=== PATIENT | male | born 1995 | race Caucasian/White ===

== ENCOUNTER 2020-05-26 19:57 | Emergency (ER) | payer BC ==
[2020-05-26] MEDS ORDERED: Lidocaine 1% 10 ML MDV INJECT ONE (21:06)
--- NOTE | 2020-05-26 21:51 | EDM.PDOC ---
ED HPI GENERAL MEDICAL PROBLEM - General Chief Complaint: Laceration Stated Complaint: FINGER LAC Time Seen by Provider: 05/26/20 20:15 Source of Information: Reports: Patient, RN Notes Reviewed History Limitations: Reports: No Limitations - History of Present Illness INITIAL COMMENTS - FREE TEXT/NARRATIVE: Patient is a 24-year-old male presenting to the emergency department with complaints of a laceration to the lateral aspect of his right hand. States he was washing dishes and there was a piece of broken glass in there that caused a laceration. He has full function of the hand. Last tetanus vaccination was a couple years ago. - Related Data Allergies Allergy/AdvReac Type Severity Reaction Status Date / Time amoxicillin Allergy Seizure Verified 05/26/20 20:20 Past Medical History Cardiovascular History: Reports: Heart Murmur, Other (See Below) Other Cardiovascular History: abnormal aortic valve; sees shop steward in [place] Social & Family History - Family History Family Medical History: Noncontributory - Tobacco Use Years of Tobacco use: 4 Packs/Tins Daily: 0.2 ED ROS GENERAL - Review of Systems Review Of Systems: Comprehensive ROS is negative, except as noted in HPI. ED EXAM, SKIN/RASH Exam: See Below General Appearance: Alert, WD/WN, No Apparent Distress Respiratory/Chest: No Respiratory Distress, Lungs Clear, Normal Breath Sounds, No Accessory Muscle Use, Chest Non-Tender Cardiovascular: Normal Peripheral Pulses, Regular Rate, Rhythm, No Edema, No Gallop, No JVD, No Murmur, No Rub GI/Abdominal: Normal Bowel Sounds, Soft, Non-Tender, No Organomegaly, No Distention, No Abnormal Bruit, No Mass Neurological: Alert, Oriented, CN II-XII Intact, Normal Cognition, Normal Gait, Normal Reflexes, No Motor/Sensory Deficits Psychiatric: Normal Affect, Normal Mood Skin: Other (Centimeter laceration to the lateral aspect of the right hand at the level of the MCP joint on the fifth finger. Full strength of flexion and extension. Small amount of active bleeding.) ED SKIN PROCEDURES - Laceration/Wound Repair Right Lateral Hand Appearance: Subcutaneous Distal NVT: Neuro & Vascular Intact, No Tendon Injury Anesthetic Type: Local Local Anesthesia - Lidocaine (Xylocaine): 1% Plain Local Anesthetic Volume: 1cc Skin Prep: Chlorhexidine (Hibiciens), Providone-Iodine (Betadine), Saline Exploration/Debridement/Repair: Wound Explored, No Foreign Material Found Closed with: Sutures Lac/Wound length In cm: 2 Suture Size: 4-0 # of Sutures: 4 Suture Type: Nylon Sterile Dressing Applied: Nurse Tetanus Status Addressed: Yes Complications: No Course - Vital Signs Last Recorded V/S: Last Vital Signs Temp 97.7 F 05/26/20 20:13 Pulse 76 05/26/20 20:13 Resp 16 05/26/20 20:13 BP 152/69 H 05/26/20 20:13 Pulse Ox 100 05/26/20 20:13 - Orders/Labs/Meds Meds: Medications Discontinued Medications Generic Name Dose Route Start Last Admin Trade Name Thu PRN Reason Stop Dose Admin Lidocaine HCl 10 ml 05/26/20 21:06 05/26/20 21:37 Xylocaine 1% INJECT 05/26/20 21:07 10 ml ONETIME ONE Administration Departure - Departure Time of Disposition: 21:48 Disposition: Home, Self-Care 01 Condition: Good Clinical Impression: Laceration - Discharge Information *PRESCRIPTION DRUG MONITORING PROGRAM REVIEWED*: No *COPY OF PRESCRIPTION DRUG MONITORING REPORT IN PATIENT ELEAZAR: No Instructions: Laceration Care, Adult, [id number] Referrals: PCP,Not In Area [Primary Care Provider] - Forms: ED Department Discharge Additional Instructions: You were seen in the emergency department today for a laceration to your right hand. The wound was cleansed and closed with 4 sutures. These should stay intact for 7-10 days. After that time they may be removed in the clinic by a nurse. Keep the wound clean and dry. Wash with normal soap and water twice daily. Do not submerge the wound in water. Watch for signs of infection including increased redness, swelling, or purulent drainage. If these should occur, you should be seen either in the clinic or in the emergency department as antibiotic treatment may be needed. Return to the ER as needed. Sepsis Event Note (ED) - Evaluation Sepsis Screening Result: No Definite Risk
== END 2020-05-26 22:10 | disposition home or self-care (01) ==
LOC: JD.ED 19:57
DX: S61.411A Laceration without foreign body of right hand, initial encounter (principal); F17.210 Nicotine dependence, cigarettes, uncomplicated; Z88.1 Allergy status to other antibiotic agents; W25.XXXA Contact with sharp glass, initial encounter
CPT/HCPCS: 12001; 99282; J2001